=== PATIENT | male | born 1990 | race Caucasian/White ===

== ENCOUNTER 2023-04-18 22:08 | Emergency (ER) | payer OTHER ==
[2023-04-18 22:37] VITALS: TEMP 98.5
[2023-04-18 23:23] VITALS: O2SAT 96
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
--- NOTE | 2023-04-18 23:58 | XRAY ---
CLINICAL HISTORY:back pain COMPARISON:None TECHNIQUE:CT scan of lumbar spine done. Axial images obtained with reformatted coronal and sagittal images and submitted for interpretation. FINDINGS: Loss of normal lumbar lordosis. Intact vertebral bodies and neural arches. No definite fractures could be detected. Segmental disc analysis level by level: L1- L2: There is no significant disc herniation or neural foraminal narrowing visualized. Central canal is unremarkable. No sign of lateral recess stenosis. Nerve roots are normal. L2- L3: There is no significant disc herniation or neural foraminal narrowing visualized. Central canal is unremarkable. No sign of lateral recess stenosis. Nerve roots are normal. L3- L4: There is no significant disc herniation or neural foraminal narrowing visualized. Central canal is unremarkable. No sign of lateral recess stenosis. Nerve roots are normal. L4- L5: Diffuse disc bulge . Central canal is unremarkable. Nerve roots are normal. L5- S1: Postero-central herniation without nerve root compression. Central canal is unremarkable. Nerve roots are normal. No retro paraspinal soft tissue masses. No developmental canal stenosis. IMPRESSION: 1. Loss of normal lumbar lordosis, secondary to muscle spasm 2. Degenerative changes in the lumbar spine MRI Lumbar Spine is advised Electronically Signed by: Dr. Ronald Sotelo MD. (04/18/2023 23:54:10 EST)
[2023-04-19 00:04] VITALS: BP 103/55; PULSE 70; RESP 23
[2023-04-19] MEDS ORDERED: TORAdol 30 mg Injection IM ONE (00:33)
[2023-04-19] MEDS ORDERED: DECADRON 10MG INJ. IM ONE (00:33)
[2023-04-19] MEDS ORDERED: DECADRON 10MG INJ. ONE (00:38)
[2023-04-19] MEDS ORDERED: TORAdol 30 mg Injection ONE (00:38)
== END 2023-04-19 01:04 | disposition home or self-care (01) ==
LOC: ED 22:08
DX: M51.36 Other intervertebral disc degeneration, lumbar region (principal); M51.27 Other intervertebral disc displacement, lumbosacral region; M62.830 Muscle spasm of back; S39.012A Strain of muscle, fascia and tendon of lower back, initial encounter; X50.0XXA Overexertion from strenuous movement or load, initial encounter; Z28.310 Unvaccinated for COVID-19; Z72.0 Tobacco use
CPT/HCPCS: 72131; 96372; 99283; J1100; J1885